=== PATIENT | female | born 1985 | race American Indian/Alaskan Native ===

== ENCOUNTER 2017-05-19 13:51 | Outpatient (CLI) | payer BC ==
[2017-05-19 15:36] LABS: Basophils % (Auto) 1.1 % (0.0-1.8); Eosinophils % (Auto) 2.6 % (0.0-4.3); Hematocrit 39.3 % (30.3-42.9); Hemoglobin 12.7 gm/dl (10.1-14.3); Mean Corpuscular HGB Conc 32 % (30-34); Mean Corpuscular Hemoglobin 27 pg (28-32); Mean Corpuscular Volume 85 fl (79-97); Red Blood Count 4.65 M/mm3 (3.65-5.03); Red Cell Distribution Width 12.3 % (13.2-15.2); White Blood Count 10.6 K/mm3 (4.5-11.0)
--- NOTE | 2017-05-19 16:03 | XRay Report ---
LEFT RIB RADIOGRAPHS INDICATION: Left-sided rib pain for 4 days. No known injury. COMPARISON: None similar. FINDINGS: AP and oblique radiographs to evaluate left ribs, 2 projections demonstrate intact imaged ribs. Clear left lung. CONCLUSION: No acute significantly displaced left rib fracture identified. Please note that some acute rib fractures may be radiographically occult. Thank you for the opportunity to participate in this patient's care.
[2017-05-19 16:16] LABS: Anion Gap 16 mmol/L; Blood Urea Nitrogen 21 mg/dL (7-17); Calcium 9.6 mg/dL (8.4-10.2); Carbon Dioxide 26 mmol/L (22-30); Chloride 99.6 mmol/L (98-107); Glucose 80 mg/dL (65-100); Potassium 4.5 mmol/L (3.6-5.0); Sodium 137 mmol/L (137-145)
[2017-05-19 16:36] LABS: Platelet Count 120 K/mm3 (140-440)
--- NOTE | 2017-05-19 16:59 | XRay Report ---
CHEST 2 VIEWS INDICATION: Left rib pain. COMPARISON: None similar. FINDINGS: PA and lateral chest radiographs demonstrate normal cardiomediastinal silhouette. Clear lungs. Intact bones. CONCLUSION: No acute disease in the chest. Thank you for the opportunity to participate in this patient's care.
== END 2017-05-19 13:52 | disposition home or self-care (01) ==
LOC: XRAY 13:51
PROVIDERS: ATTEND Internal Medicine
DX: R07.81 Pleurodynia (principal); R07.89 Other chest pain; N91.2 Amenorrhea, unspecified
CPT/HCPCS: 36415; 71020; 80048; 84484; 84703; 85025; 85379

== ENCOUNTER 2019-01-11 00:49 | Emergency (ER) | payer OTHER ==
[2019-01-11] MEDS ORDERED: HALDOL IM ONE (01:17)
[2019-01-11] MEDS ORDERED: COGENTIN IM ONE (01:17)
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
[2019-01-11] MEDS ORDERED: ATIVAN IM ONE (03:01)
[2019-01-11] MEDS ORDERED: ATIVAN IM PRN (06:44)
[2019-01-11 08:15] LABS: Amphetamine Screen,Urine PRESUMPTIVE NEGATIVE; Benzodiazepines Screen,Urine PRESUMPTIVE NEGATIVE; Cannabinoid Screen,Urine PRESUMPTIVE NEGATIVE; Cocaine Screen,Urine PRESUMPTIVE NEGATIVE; Methadone Screen,Urine PRESUMPTIVE NEGATIVE; Opiate Screen,Urine PRESUMPTIVE NEGATIVE
[2019-01-11 08:16] LABS: Bilirubin,Urine NEG (Negative); Blood,Urine LG (Negative); Color,Urine Yellow (Yellow); Hyaline Casts,Urine 3 /LPF; Mucus,Urine 3+ /HPF; Urobilinogen,Urine < 2.0 mg/dL (<2.0)
[2019-01-11 08:23] LABS: Basophils % (Auto) 0.4 % (0.0-1.8); Hemoglobin 12.7 gm/dl (10.1-14.3); Lymphocytes # (Auto) 1.4 K/mm3 (1.2-5.4); Lymphocytes % (Auto) 14.3 % (13.4-35.0); Mean Corpuscular HGB Conc 34 % (30-34); Mean Corpuscular Volume 86 fl (79-97); Monocytes # (Auto) 0.6 K/mm3 (0.0-0.8); Monocytes % (Auto) 6.4 % (0.0-7.3); Platelet Count 167 K/mm3 (140-440); Red Blood Count 4.41 M/mm3 (3.65-5.03); Red Cell Distribution Width 12.4 % (13.2-15.2)
[2019-01-11 08:43] LABS: BUN/Creatinine Ratio 17; Blood Urea Nitrogen 15 mg/dL (7-17); Calcium 9.1 mg/dL (8.4-10.2); Hemolysis Index 16
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
[2019-01-11] MEDS: GEODON PO SCH ×2 (14:41→21:57)
[2019-01-12] MEDS: GEODON PO SCH ×2 (10:30→22:51)
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
[2019-01-13] MEDS: GEODON PO SCH ×2 (10:30→22:23)
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
[2019-01-14] MEDS: GEODON PO SCH (10:38)
[2019-01-14 10:52] VITALS: BP 118/73
--- NOTE | 2019-01-14 11:00 | Progress Note ---
Subjective - Reason for Consult Consult date: 01/14/19 Reason for consult: Psychiatry Follow-up - Chief Complaint Chief complaint: "I feel good" Patient is a 33-year-old female who presented to the ER for suicidal/homicidal ideations. Today the patient is calm and cooperative during the assessment. She stated that her actions prior to coming to the ER was bizarre. She is adamant that she didn't want to kill herself. She stated that ca nnot really explain her actions. She stated that she want to continue her treatment once discharged. She denies SI/HI's and AVH's. She denies any side effects of her medication. Per the notes, no behavioral disturbances overnight. Mental Status Exam - Vital signs Last Vital Signs Temp 98.6 F 01/14/19 10:50 Pulse 89 01/14/19 10:50 Resp 18 01/14/19 10:50 BP 118/73 01/14/19 10:50 Pulse Ox 99 01/14/19 10:50 - Exam Narrative exam: MSE: Appearance: calm, cooperative Behavior: regular eye contact Speech: regular rate and tone Mood: "better" Affect: congruent to mood Thought Process:more organized Thought Content: denies SI/HI's and AVH's Motor Activity: sitting up in the bed Cognition: A/O x3 Insight: appropriate Judgment: appropriate Assessment and Plan Impression: Unspecified Mood DO. Today the patient is calm and cooperative during the assessment. UDS is negative. The patient is no threat to self and others. DDx: Bipolar DO, R/O MDD Recommendation/Plan: Rescind 1013. Continue Geodon 20 mg PO BID for mood. Discussed possible metabolic side effects of Geodon with the patient. Give Geodon with food. Dispo: The patient can follow up with [facility] for outpatient psy services. Will staff with Dr Jung.
== END 2019-01-14 13:12 | disposition home or self-care (01) ==
LOC: ED 00:49 → EEVIPCON 00:49 → ED 01-14 13:12
DX: F31.12 Bipolar disorder, current episode manic without psychotic features, moderate (principal); M79.605 Pain in left leg; F41.9 Anxiety disorder, unspecified; F39 Unspecified mood [affective] disorder; I10 Essential (primary) hypertension
CPT/HCPCS: 36415; 80048; 80307; 81001; 84443; 84703; 85025; 96372; 99285; G0480; J0515; J1630; J2060; 80320

== ENCOUNTER 2021-04-08 21:21 | Emergency (ER) | payer OTHER, SELFPAY ==
[2021-04-08 21:53] LABS: Basophils # (Auto) 0.1 K/mm3 (0.0-0.1); Basophils % (Auto) 0.6 % (0.0-1.8); Eosinophils % (Auto) 0.1 % (0.0-4.3); Hematocrit 37.7 % (30.3-42.9); Hemoglobin 12.4 gm/dl (10.1-14.3); Lymphocytes # (Auto) 1.8 K/mm3 (1.2-5.4); Mean Corpuscular HGB Conc 33 % (30-34); Mean Corpuscular Volume 86 fl (79-97); Monocytes # (Auto) 0.7 K/mm3 (0.0-0.8); Monocytes % (Auto) 6.2 % (0.0-7.3); Platelet Count 183 K/mm3 (140-440); Red Blood Count 4.37 M/mm3 (3.65-5.03)
[2021-04-08 22:17] LABS: Calcium 9.4 mg/dL (8.4-10.2)
[2021-04-09 01:29] LABS: Amphetamine Screen,Urine PRESUMPTIVE NEGATIVE; Benzodiazepines Screen,Urine PRESUMPTIVE NEGATIVE; Cannabinoid Screen,Urine PRESUMPTIVE NEGATIVE; Cocaine Screen,Urine PRESUMPTIVE NEGATIVE; Methadone Screen,Urine PRESUMPTIVE NEGATIVE; Opiate Screen,Urine PRESUMPTIVE NEGATIVE
[2021-04-09 01:47] LABS: Bacteria,Urine 1+ /HPF (Negative); Bilirubin,Urine NEG (Negative); Blood,Urine LG (Negative); Color,Urine Yellow (Yellow); Mucus,Urine FEW /HPF; Urobilinogen,Urine < 2.0 mg/dL (<2.0)
[2021-04-09 01:48] LABS: HCG Qualitative,Urine Negative (Negative)
[2021-04-09] MEDS: cephALEXin 500 MG CAP PO SCH ×2 (11:29→22:20)
[2021-04-10 08:27] VITALS: BP 108/69
[2021-04-10] MEDS: cephALEXin 500 MG CAP PO SCH (09:44)
== END 2021-04-10 10:58 | disposition home or self-care (01) ==
LOC: EEVIPCON 21:21 → ED 21:21
DX: Z13.30 Encounter for screening examination for mental health and behavioral disorders, unspecified (principal); Z20.822 Contact with and (suspected) exposure to COVID-19; R41.82 Altered mental status, unspecified; M79.641 Pain in right hand; R82.71 Bacteriuria; F41.9 Anxiety disorder, unspecified; F31.9 Bipolar disorder, unspecified; F20.9 Schizophrenia, unspecified; Z86.718 Personal history of other venous thrombosis and embolism; Z79.899 Other long term (current) drug therapy
CPT/HCPCS: 36415; 73140; 80048; 80307; 81001; 81025; 85025; 87086; 99285; U0003; 80320; G0480